=== PATIENT | female | born 1995 | race African-American/Black ===

== ENCOUNTER 2021-12-24 19:13 | Emergency (ER) | payer BC, SELFPAY ==
[2021-12-24 19:19] VITALS: BP 137/87; PULSE 89; RESP 16; TEMP 37.7; O2SAT 99; BMI 25.4
[2021-12-24 19:59] LABS: Appearance Urine CLEAR; Color Urine YELLOW; Glucose Urine UA NEG (NEG); Leukocyte Esterase Urine NEG (NEG); Nitrite Urine NEG (NEG); PH 6.5 (5.0-8.0); Urine Blood NEG (NEG); Urine Ketones 5 MG/DL (NEG); Urine Protein TRACE MG/DL (NEG-TRACE)
[2021-12-24 20:01] LABS: UPreg QC Valid YES; Urine Pregnancy NEGATIVE (NEGATIVE)
--- NOTE | 2021-12-24 21:27 | ED_ITS ---
HPI - Female Genitourinary General Chief complaint: Urogenital-Female Stated complaint: Lower Abd pain Time Seen by Provider: 12/24/21 21:27 Source: patient Mode of arrival: ambulatory Limitations: no limitations History of Present Illness HPI Narrative: 26-year-old female who presents emergency department for evaluation of cervical pain x2 days. Patient points to her suprapubic area when asked to localize the pain. She states the pain is been a constant cramping sensation which is 6/10. The pain is been present for 2 days. She has not noticed any vaginal discharge. She denied frequency, urgency or dysuria. She denied fever, chills, chest pain or shortness of breath. She states she is sexually active. She did have intercourse last night she states that it was unusually painful. The patient's last menstrual period was on 12/08/2021 and ended on 12/12/2021. She is a she had 1 therapeutic . MD elicited complaint: pelvic pain Onset (ago): day(s) (2) Location of symptoms: suprapubic Severity: moderate Female Urogenital Radiation: Non-Radiating Severity scale (1-10): 6 Quality of pain: cramping Consistency: constant Vaginal discharge: none Vaginal bleeding: none Exacerbating factors: intercourse Relieving factors: none Associated symptoms: denies other symptoms Treatment prior to arrival: none Sexual activity: Yes ( One sexual partner, last had intercourse last night) Patient : No Date of Last Menstrual Period: 12/08/21 Related Data : 1 Para: 0 Total number of abortions (spontaneous and elective): 1 Previous Rx's Medication Instructions Recorded doxycycline hyclate 100 mg tablet 100 mg PO Q12H 14 Days #28 tab 12/24/21 metronidazole 500 mg tablet 500 mg PO BID 14 Days #28 tab 12/24/21 Allergies Allergy/AdvReac Type Severity Reaction Status Date / Time No Known Allergies Allergy Verified 12/24/21 19:35 Review of Systems Review of Systems: Yes all other systems are reviewed and are negative [facility] Past Medical History [facility] Narrative: Past medical history: , 1 therapeutic . Past surgical history: patient had a hemangioma of her chin which was removed she was . A social history: She denies tobacco use. She drinks alcohol on weekends. She denies drug use. Medical History (Updated 12/24/21 @ 22:02 by Anshul Krishna MD) No known health problems : 1 Para: 0 Total number of abortions (spontaneous and elective): 1 Date of Last Menstrual Period: 12/08/21 Social History Social History Advance Directives: No Advance Directives Information Provided: No Patient : No Physical Exam Vital Signs: Vital Signs: Last Vital Signs Temp 99.8 F 12/24/21 19:19 Pulse 89 12/24/21 19:19 Resp 16 12/24/21 19:19 BP 137/87 12/24/21 19:19 Pulse Ox 99 12/24/21 19:19 BMI result Body Mass Index 25.4 Const: General: cooperative and no acute distress Orientation/co nsciousness: oriented to person and oriented to place Limitations: no limitations HEENT: Head: Yes normal to inspection, Yes normocephalic and Yes atraumatic Ears: external ears normal General nose exam: Normal external nose present Face and sinus: Yes normal facial exam Mouth: Normal oral and palatal mucosa present Throat: Yes posterior oropharynx normal Eyes: General: appearance normal, both eyes and all related structures Pupils: Equal, round and reactive pupils present Neck: Neck: Yes normal visual inspection, Yes no lymphadenopathy, Yes trachea midline and Yes supple Chest: Chest palpation & inspection: normal inspection of the chest and normal palpation of entire chest wall Resp: Effort & Inspection: normal respiratory effort and able to speak in complete sentences Auscultation: clear to auscultation bilaterally Cardio: Rate: regular rate Rhythm: regular rhythm Heart sounds: S1 normal heart sound present, S2 normal heart sound present and no murmurs GI: Inspection: Yes normal to inspection Palpation (GI): Soft to palpation, Tenderness to palpation present (GI) suprapubicly and no guarding Auscultation: normal bowel sounds : General: Yes no CVA tenderness External Female Exam: normal external appearance Speculum Exam - Vagina: normal appearance of the vagina Speculum Exam - Cervix: normal appearance of the cervix, Cervical os closed, Cervical tenderness present ( severe) and Other cervical findings present ( thick white cervical discharge) Bimanual exam- vagina & uterus: Cervical tenderness present ( severe), cervical motion tenderness ( moderate to severe) and Uterine tenderness ( moderate) Bimanual Exam- Adnexa, other: normal adnexae Back/Spine/Pelvis: Back: no CVA tenderness Skin: General skin exam: no rashes or lesions noted Neuro: General: oriented to person and oriented to place Cranial nerves: Yes CN's II-XII intact bilaterally and Yes Equal, round and reactive pupils present Cognition (Neuro): normal cognition Motor exam (neuro): 5/5 motor strength present throughout Extrem: General: Yes normal to inspection Psych: Appearance: grossly normal Speech and movement: Normal speech and movement present Affect: normal affect Attitude: cooperative Thought process: Normal thought process present Thought content: Normal thought content present Course Course Course Narrative: 26-year-old female who presents emergency department for evaluation of suprapubic pain x2 days, she is sexually active. Patient's examination did reveal significant cervical tenderness, cervical motion tenderness and uterine tenderness. Patient's cervix appears normal but she does have a thick whitish discharge. Patient's presentation is consistent with pelvic inflammatory disease. She was given ceftriaxone 500 mg IM. She started on doxycycline 100 mg twice a day for 14 days and metronidazole 500 mg twice a day for 14 days. She was given printed and verbal instructions. She will need to follow-up with our bracelet maker [facility] in 10-14 days for re-evaluation. [facility] [place] - Female Genitourinary Lab Data Attestation: I reviewed the patient's lab results. Lab results narrative: urinalysis negative, urine test was negative Labs: Lab Results 12/24/21 12/24/21 Range/Units 19:39 19:39 Urine Color YELLOW Urine Appearance CLEAR Urine pH 6.5 (5.0-8.0) Ur Specific [place] 1.020 (1.005-1.025) Urine Protein TRACE (NEG-TRACE) MG/DL Urine Glucose (UA) NEG (NEG) MG/DL Urine Ketones 5 (NEG) MG/DL Urine Blood NEG (NEG) Urine Nitrite NEG (NEG) Ur Leukocyte Esterase NEG (NEG) Urine Test NEGATIVE (NEGATIVE) Discharge Plan Discharge Clinical Impression: Acute pelvic inflammatory disease Patient Disposition: Home, Self-Care Additional Instructions: Pelvic inflammatory disease instructions: Your presentation and physical findings are consistent with pelvic inflammatory disease (PID). Approximately 30% of the time, pelvic inflammatory disease is caused by sexually transmitted diseases such as Trichomonas, gonorrhea or chlamydia. Approximately 70% of the time, pelvic inflammatory disease is caused by abnormal bacteria (anaerobic bacteria) in your vagina that can cause an infection Medications You received ceftriaxone 500 mg intramuscularly here in the emergency department Take doxycycline 100 mg, 1 pill twice a day for 14 days. Take metronidazole 500 mg, 1 pill twice a day for 14 days. These 3 antibiotics treat sexually transmitted diseases such as gonorrhea, chlamydia and Trichomonas as well as anaerobic bacteria that can cause pelvic inflammatory disease. Take ibuprofen 200 mg pills, 3 pills every 6 hours as needed for pain. Take Tylenol (acetaminophen) 500 mg pills, 2 pills every 4 to 6 hours as needed for pain. Follow-Up Follow-up with our on-call gynecology in 10-14 days. If hour palliative care specialist cannot see you, you [facility] also [facility] with [facility] for follow-up care The doctor that follows up will need to review the following results with you: Bacterial vaginosis testing Gonorrhea and chlamydia (cervical swab) Trichomonas testing You can also check these results on the patient portal. Outpatient Testing Your doctor should test you for syphilis and for HIV as well. These are not tests that we do from the emergency department since that require follow-up to discuss the results. Please return to the emergency department if your symptoms get worse or if you develop any symptoms that are concerning to you. Prescriptions: New metronidazole 500 mg tablet 500 mg PO BID 14 Days Qty: 28 0RF doxycycline hyclate 100 mg tablet 100 mg PO Q12H 14 Days Qty: 28 0RF
[2021-12-24] MEDS: cefTRIAXone sodium 500 MG, Lidocaine HCl 1 % MPF 1 ML IM (22:03)
--- NOTE | 2021-12-24 22:10 | PC.NURSE ---
PELVIC EXAM PERFORMED BY DR JOE WITNESSED BY SHEYLA MILLER.
[2021-12-25 05:41] LABS: CT PCR NOT DETECTED (Not Detect.); NG PCR NOT DETECTED (Not Detect.)
[2021-12-25 08:53] LABS: BV Int Neg Control Negative (Negative); BV Int Pos Control Positive (Positive)
== END 2021-12-24 22:26 | disposition home or self-care (01) ==
PROVIDERS: Emergency Provider Emergency Medicine Emergency Medical Services
DX: N73.9 Female pelvic inflammatory disease, unspecified (principal); R10.2 Pelvic and perineal pain; N89.8 Other specified noninflammatory disorders of vagina; Z20.2 Contact with and (suspected) exposure to infections with a predominantly sexual mode of transmission; Z79.899 Other long term (current) drug therapy
CPT/HCPCS: 81003; 81025; 87480; 87491; 87510; 87591; 87660; 96372; 99284; J0696

== ENCOUNTER 2022-09-16 13:53 | Emergency (ER) | payer OTHER, BC, MEDICAID, SELFPAY ==
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
[2022-09-16 14:05] VITALS: BP 137/91; PULSE 92; RESP 18; TEMP 36.7; O2SAT 100; BMI 25.0
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
== END 2022-09-16 15:04 | disposition home or self-care (01) ==
LOC: HO.ED 15:01
PROVIDERS: Emergency Provider Emergency Medicine
DX: S13.4XXA Sprain of ligaments of cervical spine, initial encounter (principal); S43.402A Unspecified sprain of left shoulder joint, initial encounter; M54.2 Cervicalgia; R51.9 Headache, unspecified; V43.52XA Car driver injured in collision with other type car in traffic accident, initial encounter; Y93.9 Activity, unspecified; Y92.410 Unspecified street and highway as the place of occurrence of the external cause; Y99.9 Unspecified external cause status; Z79.899 Other long term (current) drug therapy
CPT/HCPCS: 72040; 73030; 99282; 99283